=== PATIENT | female | born 2000 | race Caucasian/White ===

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

== ENCOUNTER 2020-12-02 22:45 | Emergency (ER) | payer OTHER ==
[2020-12-02 22:58] VITALS: BP 129/90; PULSE 96; TEMP 99.9; BMI 21.2
[2020-12-03 01:18] LABS: URINE APPEARANCE CLEAR; URINE BILIRUBIN NEGATIVE (NEGATIVE); URINE COLOR YELLOW; URINE GLUCOSE (UA) NEGATIVE (NEGATIVE); URINE KETONE NEGATIVE (NEGATIVE); URINE LEUK ESTERASE NEGATIVE (NEGATIVE); URINE NITRITE NEGATIVE (NEGATIVE); URINE PROTEIN NEGATIVE (NEGATIVE); URINE UROBILINOGEN 0.2 mg/dL (0.2-1.0)
[2020-12-03 01:25] LABS: HEMOGLOBIN 14.8 GM/dL (10.7-15.3); MEAN PLT VOLUME 8.6 fl (7.5-11.1); RBC 4.86 M/mm3 (3.60-5.2); RDW 12.9 % (11.6-15.6)
[2020-12-03 01:29] LABS: BASO % 0.2 % (0-2.0); EOS % 0.5 % (0-4.5); HEMATOCRIT 42.8 % (32.4-45.2); LYMPH % 17.4 % (8-40); MCH 30.6 pg (25.7-33.7); MCHC 34.7 g/dl (32.0-36.0); MEAN CELL VOLUME 88.1 fl (80-96); MONO % 6.3 % (3.8-10.2); NEUT % 75.6 % (42.8-82.8); PLATELET COUNT 276 K/MM3 (134-434); WHITE BLOOD COUNT 10.5 K/mm3 (4.0-10.0)
[2020-12-03 01:30] LABS: CHLORIDE 106 mmol/L (98-107); SODIUM 139 mmol/L (136-145)
[2020-12-03 01:32] LABS: ALBUMIN 4.2 g/dl (3.4-5.0); ANION GAP 7 MMOL/L (8-16); BLOOD UREA NITROGEN 8.1 mg/dL (7-18); CALCIUM 9.1 mg/dL (8.5-10.1); CO2 27 mmol/L (21-32)
[2020-12-03 01:33] LABS: GLUCOSE,RANDOM 81 mg/dL (74-106)
[2020-12-03 01:35] LABS: SGPT/ALT 23 U/L (13-61)
[2020-12-03 01:36] LABS: CREATININE 0.5 mg/dL (0.55-1.3); SGOT/AST 19 U/L (15-37)
[2020-12-03 01:37] LABS: BILIRUBIN,TOTAL 0.3 mg/dL (0.2-1); TOT PROT 8.2 g/dl (6.4-8.2)
[2020-12-03 01:38] LABS: ALK PHOS 95 U/L (45-117)
== END 2020-12-03 03:16 | disposition home or self-care (01) ==
LOC: FER 22:45
DX: R07.89 Other chest pain (principal); R10.84 Generalized abdominal pain; S30.1XXA Contusion of abdominal wall, initial encounter
CPT/HCPCS: 36415; 71260-TC; 74177-TC; 80053; 81003; 81025; 84484; 85025; 93005; 99285-25